=== PATIENT | female | born 1955 | race Caucasian/White ===

== ENCOUNTER 2023-03-06 07:06 | Emergency (ER) | payer MEDICARE, SELFPAY ==
[2023-03-06 07:07] VITALS: BP 138/80; PULSE 78; RESP 16; TEMP 37; O2SAT 100; BMI 30.7
--- NOTE | 2023-03-06 07:22 | EX.ED.UPPERE ---
HPI History of Present Illness Chief Complaint: Upper Extremity Injury Informant: patient Onset/Context/Timing Onset: Today Narrative Narrative: Presenting nontraumatic left upper arm pain and squeezing sensations. Also pain in left upper neck. Denies trauma. Denies chest or back pain. However presents reporting she is concerned that she had atypical heart attack 2015. She had a heart catheter as noted severe distal artery disease not amenable to intervention. She states she had a heart cath a year ago noting similar. She just moved back from [place] 3 weeks ago. She states recent diagnosis of fibromyalgia and concerning lupus. 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 She states her blood pressure was low yesterday at 71/50 she was lightheaded. No recent vomiting or diarrhea. No cough. No urinary symptoms. States she has a lot of reactions to medications. She is only on baby aspirin and amlodipine 2.5 mg. [facility] Medical History (Updated 03/06/23 @ 11:[address] Nicho Slaughter DO) Hypercholesteremia Lupus Non-STEMI (non-ST elevated myocardial infarction) Allergy/AdvReac Type Severity Reaction Status Date / Time epinephrine Allergy Severe Anaphylaxis Verified 03/06/23 07:10 [From Epi E-Z Pen] sulfate ion Allergy Severe Anaphylaxis Verified 03/06/23 07:10 mushroom Allergy Mild Rash Verified 03/06/23 07:10 Penicillins Allergy Mild Anaphylaxis Verified 03/06/23 07:10 shellfish derived Allergy Mild SOB Verified 03/06/23 07:10 Social History Smoking Status: Never smoker ROS ROS ED Constitutional Constitutional ED: Denies chills, fever(s) or sweats Eyes Eyes: Denies change in vision ENT ENT ED: Denies dysphagia or sore throat Cardiovascular Cardiovascular: Denies chest pain, leg edema, palpitations or racing heartbeat Respiratory/Chest Respiratory/Chest: Denies cough, dyspnea or dyspnea on exertion Gastrointestinal Gastrointestinal: Denies abdominal pain, diarrhea, nausea or vomiting Genitourinary Genitourinary ED: Denies dysuria, hematuria or urinary frequency Musculoskeletal Musculoskeletal: Reports extremity pain; Denies back pain or neck pain Integumentary Denies rash or wounds Neurologic Neurologic: Denies headache(s), paresthesias or weakness EXAM Physical Exam Const Vital Signs: 03/06/23 07:07 Temperature 98.6 F Temperature Source Temporal Pulse Rate 78 Respiratory Rate 16 Blood Pressure 138/80 H Blood Pressure Mean 99 Pulse Ox 100 Oxygen Delivery Method Room Air Positive well nourished and well developed General Appearance ED: well developed and NAD HEENT Reports moist mucous membranes normocephalic and atraumatic Eyes PERRL, EOMs intact bilaterally and conjunctivae normal General Eye ED: Yes normal appearance of both eyes Neck full ROM, no lymphadenopathy and supple Neck Narrative: Spurling's test negative bilaterally. General: Negative for tenderness Chest Wall inspection of chest normal and palpation of chest normal Chest: Negative for tenderness Resp normal respiratory effort and normal air movement Effort and Inspection: symmetric chest movement; Negative for respiratory distress Cardio regular rate, regular rhythm and no murmurs Peripheral Pulses: pulses 2+ throughout GI normal to inspection, nondistended, normoactive bowel sounds and non-tender Palpation: Negative for guarding or rebound tenderness present Back/Spine no CVA tenderness and no thoracic nor lumbar tenderness Extremity Extremity Narrative: Tender palpation left upper arm, soft compartments. Distal pulses intact. General Extremety ED: Yes tenderness; Negative for edema General Extremity: Negative for edema Neuro oriented x3 and no sensory deficits noted Sensorium / Orientation: awake and alert Skin no rashes or lesions noted and no wounds MDM MDM MDM Narrative Medical decision making narrative: Interventions / MDM: Differential diagnosis: left arm pain, cervical radiculopathy, Diagnosis considered but do not suspect: No clinical compartment syndrome with soft compartments. No clinical cellulitis with normal skin exam. No clinical shingles with normal skin exam at this time. My EKG interpretation: Sinus rate of 63, no ST changes isolated T wave version leads III. Nonspecific. Imaging independently reviewed and interpreted by myself: 1 view chest x-ray: No acute process. External documents reviewed: N/A Test considered but not ordered:N/A ED course: Patient nontraumatic squeezing sensation in left upper arm. No chest pains. History of coronary disease. With her concerns cardiac workup initiated. 0830: Chest x-ray negative. Initial troponin negative. Await 2-hour troponin for further evaluation. Will give Toradol to help with symptoms. 1100: Repeat troponin negative. She has pain only with movement of her arm. There is no clinical cellulitis or compartment syndrome. She had neck pain. Discussed possibly cervical radiculopathy. Reassurance not stroke symptoms as it is pain and not numbness and weakness. Discussed possible treatment with neuropathic medicines however she states she has a lot of side effects and elects to monitor symptoms. She has a follow-up with her trains dispatcher supervisor in a week and then cardiology shortly afterwards. She has a PCP appointment also scheduled. Discussed monitoring symptoms she develops any chest or back symptoms to return to the ED for reevaluation otherwise outpatient follow-up. All questions were answered. Re-evaluation: stable Disposition discussed with patient/family/significant other: Patient Case discussed with consulting clinician: N/A This note was generated with [employer] dictation software. It may contain incorrect words, spelling, and punctuation that were not noted in checking the note before signing. Lab Data Attestation: I reviewed the patient's lab results. Discharge Plan Triage Chief Complaint: Upper Extremity Injury ED Provider: Nicho Slaughter Dx/Rx/DC Orders Clinical Impression: Arthralgia of left upper arm, Cervical radicular pain Instructions: Cervical Radiculopathy Primary Care Provider: NELL NIELSON Referrals: Ángel Babcock MD [Non-Staff] - 1 Week Activity Restrictions/Additional Instructions: Nontraumatic left arm pain. Your cardiac workup is negative. Pain is not part of stroke symptoms. I am concern for cervical radicular pain from the neck into your arm. You declined medication treatment at this time. Monitor symptoms. If you develop pain into your chest or back, return to the ED for reevaluation otherwise follow-up with your doctors as an outpatient. Disposition Disposition: Home, Self Care Discharge Date/Time: 03/06/23 11:30
[2023-03-06 07:29] VITALS: BP 134/75; PULSE 64; RESP 16; O2SAT 99
[2023-03-06 07:33] LABS: Absolute Lymphocyte Count 2.13 X10^3/uL (0.83-4.51); Absolute Neutrophil Count 6.1 X10^3/uL (2.0-7.7); Basophil# 0.06 X10^3/uL; Basophil% 0.7 % (0-1); Eosinophil# 0.18 X10^3/uL; Hematocrit 45.4 % (37-47); Hemoglobin 14.7 g/dL (12.0-15.0); Lymphocyte # 2.13 X10^3/ul (0.83-4.51); Lymphocyte % 23.2 % (19-41); Mean Corp Hgb Conc 32.4 g/dL (32-36); Mean Corpuscular Hgb 31.4 pg (27.0-32.0); Mean Platelet Vol. 10.7 fl (6.2-12.0); Monocyte# 0.67 X10^3/uL; Monocyte% 7.3 % (0-10); NRBC Flagged by Analyzer 0 % (0-5); Neutrophil # 6.12 X10^3/uL (2.7-7.7); Neutrophil % 66.5 % (47-70); Platelet Count 272 K/mm3 (150-450); RBC Distribution Width CV 11.5 % (11.6-14.6); RBC Distribution Width SD 41.1 fl (35.1-43.9); Red Blood Count 4.68 M/mm3 (4.2-5.4); White Blood Count 9.2 K/mm3 (4.4-11.0)
--- NOTE | 2023-03-06 07:35 | RAD_ITS ---
STUDY: X-RAY CHEST REASON FOR EXAM: Female, 68 years old. Chest pain TECHNIQUE: Frontal view of the chest COMPARISON: None. FINDINGS: The lungs are clear. There are no pleural effusions. There is no pneumothorax. The heart is normal in size. The visualized osseous structures are within normal limits. RAD/Chest 1 View (Portable) IMPRESSION: No acute thoracic pathology. Electronically Signed: Grant Garza MD at 8:15 EST ,
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
[2023-03-06 08:01] LABS: Anion Gap 4 (5-15); BUN 13 mg/dL (7-18); BUN/Creat Ratio 14.6 RATIO (10-20); Calcium,Total 9.2 mg/dL (8.5-10.1); Chloride 110 mmol/L (98-107); Creatinine, Serum 0.89 mg/dL (0.55-1.02); EST Glomerular Filtration Rate 67 mL/min (>60); Est Glom Filt Rate - Afr Amer 81 mL/min (>60); Estimated Creatinine Clearance 52.54 ml/min; Glucose 110 mg/dL (74-106); Potassium 4.1 mmol/L (3.5-5.1); Sodium Level 141 mmol/L (136-145); Troponin-I HS (w/2H Reflex) 3 pg/mL (3.0-54.0)
[2023-03-06] MEDS: Ketorolac 15 MG/ML Vial IV (08:58)
[2023-03-06 09:30] LABS: Reflex Troponin-HS? (from REC) Y
[2023-03-06 10:22] LABS: Troponin-I HS 4 pg/mL (3.0-54.0)
[2023-03-06 11:29] VITALS: BP 120/87; PULSE 68; RESP 18; O2SAT 98
== END 2023-03-06 11:30 | disposition home or self-care (01) ==
PROVIDERS: Emergency Provider Emergency Medicine; Visit Provider Emergency Medicine
DX: M54.12 Radiculopathy, cervical region (principal); M25.50 Pain in unspecified joint; E78.00 Pure hypercholesterolemia, unspecified; I25.2 Old myocardial infarction; I5A Non-ischemic myocardial injury (non-traumatic)
CPT/HCPCS: 71045; 80048; 84484; 85025; 93005; 96374; 99284; A4216

== ENCOUNTER 2023-06-27 18:17 | Emergency (ER) | payer MEDICARE, SELFPAY ==
[2023-06-27 18:17] VITALS: BP 141/47; PULSE 102; RESP 18; TEMP 36.6; O2SAT 99; BMI 30.7
--- NOTE | 2023-06-27 18:45 | RAD_ITS ---
STUDY: X-RAY - RIGHT ANKLE REASON FOR EXAM: Female, 68 years old. FALL TECHNIQUE: AP and lateral view(s) of the ankle. COMPARISON: None. FINDINGS: There is an acute impacted. Intra-articular fracture of the distal with mild overlapping of fracture fragments. There is also a transversely oriented fracture through the distal tibial plafond with mild medial displacement of the distal fracture fragment narrowing the medial tibiotalar joint space. There is also mild anterior widening of the tibiotalar joint Normal visualized talus. Moderate-sized plantar calcaneal spur The visualized subtalar, talonavicular, calcaneocuboid and tarsal articulations are normal. Diffuse bimalleolar soft tissue swelling RAD/Ankle 2 Views IMPRESSION: Acute bimalleolar fracture subluxation Electronically Signed: Ángel Oates MD at 19:19 EDT ,
[2023-06-27 21:00] VITALS: BP 124/66; PULSE 92; RESP 18
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
--- NOTE | 2023-06-27 21:45 | US_ITS ---
STUDY: VENOUS DOPPLER ULTRASOUND - RIGHT LOWER EXTREMITY REASON FOR EXAM: Female, 68 years old. RT ANKLE PAIN/ BROKEN TECHNIQUE: Ultrasound evaluation of the deep vein system to include blackwood-scale imaging and compression was performed. Blackwood-scale imaging and Doppler sonographic evaluation, including duplex spectral analysis and qualitative color flow sonography, was performed. COMPARISON: None. FINDINGS: Common Femoral Vein: Normal compression, spontaneity and augmentation. Normal color Doppler. Common Femoral Vein/Greater Saphenous Junction: Normal compression, spontaneity and augmentation. Normal color Doppler. Deep Femoral Vein: Normal compression, spontaneity and augmentation. Normal color Doppler. Femoral Proximal: Normal compression, spontaneity and augmentation. Normal color Doppler. Femoral Middle: Normal compression, spontaneity and augmentation. Normal color Doppler. Femoral Distal: Normal compression, spontaneity and augmentation. Normal color Doppler. Popliteal Vein: Normal compression, spontaneity and augmentation. Normal color Doppler. Posterior Tibial Vein: Normal compression, spontaneity and augmentation. Normal color Doppler. Peroneal Vein: Normal compression, spontaneity and augmentation. Normal color Doppler. US/Venous Duplex Imag/Limited/Uni IMPRESSION: Normal venous Doppler ultrasound of the lower extremity. Electronically Signed: Ángel Oates MD at 22:38 EDT ,
[2023-06-27] MEDS: HYDROcodone Bitartrate/Apap 5/325 Tablet PO (22:03)
[2023-06-27 23:00] VITALS: BP 158/83; PULSE 93; RESP 20; O2SAT 98
--- NOTE | 2023-06-27 23:49 | RAD_ITS ---
INDICATION: pain EXAMINATION/TECHNIQUE: X-RAY - RIGHT XR Ankle Min 3 Views 3 VIEWS COMPARISON: Right ankle x-rays earlier same day FINDINGS: BONES: Exam through splint partially obscures detail. Fractures distal tibia, medial malleolus with approximately 1 cm lateral displacement, posterior malleolus with approximately 1.5 cm of posterior displacement /distraction of the fragment. Oblique fracture of the distal fibula with lateral displacement of one half bone width. Little change in the alignment compared to earlier JOINTS: Disruption of the ankle mortise with widening of the superomedial and anterior aspect of the mortise, with partial lateral subluxation of the talus in relation to the tibia. SOFT TISSUES: Unremarkable. RAD/Ankle min 3 Views IMPRESSION: Trimalleolar fracture with displacement and subluxation at the tibiotalar joint. Electronically Signed: Pretty Adam MD at 0:22 EDT ,
[2023-06-28] VITALS: BP 152/80; PULSE 78; RESP 16; TEMP 36.8; O2SAT 98
--- NOTE | 2023-06-28 00:11 | ED.RN ---
[facility] ETA 0500. Patient and family notified.
[2023-06-28 01:00] VITALS: BP 120/80; PULSE 67; RESP 16; O2SAT 98
[2023-06-28 03:00] VITALS: BP 121/67; PULSE 92; RESP 18; O2SAT 99
--- NOTE | 2023-06-28 03:10 | ED.RN ---
This patient calls out requesting a nurse. This RN to the bedside, patient immediately starts yelling at this RN states she is having an emergency and that is unacceptable that she has to wait this long for an ambulance. This RN explains at length the transfer process and setting up transportation. Pt continues to yell at this RN stating we aren't doing anything for her and what we have done we have done wrong. This RN apologizes multiple times, pt no longer wishes to talk to this RN.
--- NOTE | 2023-06-28 05:09 | ED.RN ---
Called physicians requesting an updated ETA as they were suppose to be here at 5:00, they said it would be 6:30.
--- NOTE | 2023-06-28 05:38 | ED.RN ---
updated patient on new ETA. Patient is very upset, stating we are not taking care of her. Pt states she wants to leave. Emotional support provides, this RN explains the transport process and how we do not have control over their times. Pt starts yelling at this RN stating get me in a wheelchair now She states she called [facility] in her room and they told her she needed to get there now. Patient states just call 911 and have them take me This RN explains again that [facility] will not take her to [place] from our ER. Pt refuses vitals. States she wants to leave and she will find her own ride. This RN goes over the risk, patient keeps cutting me off while speaking. Pt signs AMA form. She was assisted into a wheelchair. Pt refuses to let this RN push wheelchair. Pt wheeled herself out of the department in the wheelchair. Pt refuses to take crutches.
--- NOTE | 2023-06-28 06:09 | ED.RN ---
Patients call in asking why his is sitting outside calling for a different ride to [facility]. This RN explains the interaction I had with patient and how she signed herself out and refuses to have anything done. He states you cant do that, she cant do that This RN explains that I can not hold her here if she wishes to leave. Transportation was canceled for patient has she has left the department. hangs up on this RN.
== END 2023-06-28 05:40 | disposition left against medical advice (07) ==
PROVIDERS: Emergency Provider Student in an Organized Health Care Education/Training Program; Visit Provider Student in an Organized Health Care Education/Training Program
DX: S82.841A Displaced bimalleolar fracture of right lower leg, initial encounter for closed fracture (principal); M79.651 Pain in right thigh; I25.2 Old myocardial infarction; S93.01XA Subluxation of right ankle joint, initial encounter; V18.0XXA Pedal cycle driver injured in noncollision transport accident in nontraffic accident, initial encounter
CPT/HCPCS: 27810; 73600; 73610; 93971; 99285